=== PATIENT | male | born 1975 | race Two or more races ===

== ENCOUNTER 2023-11-02 12:20 | Emergency (ER) | payer OTHER ==
[~2023-11-02] VITALS: Ht 180.3 cm; Wt 83.9 kg
[2023-11-02] MEDS ORDERED: ADVAIR HFA 230/12 GM IH (12:30)
== END 2023-11-02 16:13 | disposition home or self-care (01) ==
LOC: ER 12:20
DX: S92.912A Unspecified fracture of left toe(s), initial encounter for closed fracture (principal); W22.03XA Walked into furniture, initial encounter; Y93.89 Activity, other specified; Y92.89 Other specified places as the place of occurrence of the external cause